=== PATIENT | female | born 1950 | race Caucasian/White ===

== ENCOUNTER 2024-11-04 09:28 | Emergency (ER) | payer OTHER, SELFPAY ==
[2024-11-04 09:37] VITALS: BMI 24.6
[2024-11-04 09:38] VITALS: BP 132/79
[2024-11-04 10:00] VITALS: BP 134/66
--- NOTE | 2024-11-04 10:00 | ED.GENMED ---
History of Present Illness
General
Chief Complaint: Chest Pain
Source: patient
Time Seen by Provider: 11/04/24 09:35
History of Present Illness
History of Present Illness:
74-year-old female presents to the emergency room complaining of chest pain. Patient has a history of coronary artery disease and acute MIs. She states she has 12 stents. Typically she sees cardiology at [facility]. Patient has been
experiencing episodes of chest pressure frequently over the past couple weeks. She takes and nitro when she has the discomfort in the discomfort seems to go away in about 10 to 15 minutes. It is associated with some discomfort in her left arm and
some shortness of breath. Intermittently the pain is associated with nausea. Today the patient was having chest discomfort that did not go away within nitro. She took a second 1 as well as 4 baby aspirin without improvement. 911 was called
paramedics gave an additional 324 mg of aspirin and 2 squirts of nitro spray. Ultimately this did help alleviate the chest discomfort and she is not having any at the time of my evaluation. Patient believes her last cardiac catheterization was in
2018. Complicating her situation is the patient's had gastric ulcers with GI bleeding. Because of this Brilinta was stopped about a year ago. She takes which she believes is Protonix twice a day. She states she has had an endoscopy which shows
Zhang's esophagitis and ulcers. No bloody stool recently. Her stools are sometimes very black but she does take vitamins which contain iron.
Past History
Past History
ED Past Medical History: CAD, [place] (20 years ago Lucie, stented x 4. Four more stents later, 2001, then another [place] 2011 with stents.) and Psychiatric (anxiety takes Lexapro)
ED Past Surgical History: Appendectomy, Bowel resection and Cardiac (stents)
Social History
Tobacco: Non-smoker
Alcohol: None
Drug: None
Personal:
Living: with family
Employment: Employed
Family History
Family History: Hypertension
Phy Exam
Physical Exam
Physical Exam:
General: Awake, Alert, Oriented X3. No acute distress.
Vitals: unremarkable
Head: Atraumatic
Eyes: Pupils equal, EOMI
Throat: Airway intact, no exudates
Neck: Trachea midline
Lungs: Clear and equal b/l
Heart: Regular rate, no murmurs
Abd: Soft, Nontender, No pulsatile mass
Rectal: Heme-negative brown stool
Neuro: Nonfocal
Skin: Warm, dry, no rash
Extremities: pulses equal b/l, no edema
Scores
Heart Score for Chest Pain Patients
STEMI patient?: No
History: Moderately Suspicious
ECG: Nonspecific Repolarization
Age: >/= 65 years
Risk Factors: >/= 3 Risk Factors or History of CAD
Troponin: </= Normal Limit
Heart Score for Chest Pain Patients: 6
Heart Score Risk: 20.3% MACE over next 6 weeks
Course
Orders/Labs/Results
Orders:
Orders
11/04/24 09:37
Electrocardiogram (*1) Urgent
Reason for Study: Chest Pain
EKG- Treatment ONCE
11/04/24 09:46
CMP [Comprehensive Metabolic Panel] Urgent
Complete Blood Count/With Diff Urgent
Lipase Urgent
Troponin I Urgent
11/04/24 09:58
CR Chest - 2 Views Urgent
Comment:
Reason For Exam: chest pain
11/04/24 10:06
Type+Screen Urgent
11/04/24 10:25
ABO2 Urgent
BBK Wristband Number:
Associate notified that ABO2 has been ordered: [id number]
Date: 11/04/24
Time: 10:17
Airborne Electronics Analyst ID: [id number]
11/04/24 12:27
Troponin I Urgent
Abnormal Lab Results
11/04/24
09:46
RBC 4.00 L 10^6/uL
(4.20-5.40)
Hct 35.5 L %
(37.0-47.0)
Lymphocytes % 17.9 L %
(20.5-51.1)
Chloride 109 H mmol/L
(98-107)
Glucose 108 H mg/dl
(70-99)
11/04/24 09:46
11/04/24 09:46
Vital Signs
Initial and Last Documented VS:
Initial Vital Signs
Temp Pulse Resp BP Pulse Ox
97.9 F 67 17 132/79 96
11/04/24 09:38 11/04/24 09:38 11/04/24 09:38 11/04/24 09:38 11/04/24 09:38
Last Documented Vital Signs
Temp Pulse Resp BP Pulse Ox
97.9 F 67 14 134/66 96
11/04/24 09:38 11/04/24 13:15 11/04/24 13:15 11/04/24 10:00 11/04/24 09:45
MDM/Problems Addressed
Differential Diagnosis Includes:
Angina, acute coronary syndrome, gastritis or esophagitis
MDM/Problems Addressed:
Patient presents with chest discomfort which occurs at rest. No exertional component. Troponin negative x 2. No acute ischemic changes. Hemoglobin is 12. She has heme negative stool. Remainder of her labs are reassuring. Patient placed on the
chest pain hotline. Patient does have a appraiser personal property at [facility] however she seems dissatisfied with them and is requesting contact information one of our appraiser personal property.
*Radiology
Radiology exam reviewed: preliminary read by ED provider (No acute abnormalities on my review of the patient's chest x-ray)
*Pulse Oximetry
Patient hypoxic: no
*EKG
Interpreted by ED Provider?: Yes
Heart Rate: 64
Rate: normal
Rhythm: sinus
Guin: normal axis
Interval: first degree heart block
QRS Pattern: normal QRS
Ischemia: no ischemia
*Secondary School Teacher Librarian Interpretation
Rate: normal
Interpretation: normal
Rhythm: sinus
*Critical Care Note
Total Time (30-74mins, 75-104mins- exclusive of procedures): Not Applicable
ED Attending Note
-
Portions of this chart may have been created with voice recognition software.� Occasional wrong word or��sound alike� substitutions may have occurred due to the inherent limitations of voice recognition software.
Discharge Plan
Departure
Patient Disposition: Home (Routine Discharge)
Date of Disposition: 11/04/24
Time of Disposition: 13:38
Patient with high blood pressure during this ER visit?: No
Condition: Good
Discharge Problem:
Chest pain
Instructions: Acid Reflux and GERD in Adults (DC)
Prescriptions:
No Action
atorvastatin [Lipitor] 80 mg Tablet
80 mg PO HS
ascorbic acid (vitamin C) [Vitamin C] 1,000 mg Tablet
1,000 mg PO DAILY
isosorbide mononitrate 30 mg Tablet Extended Release 24 Hr
30 mg PO DAILY
amlodipine 5 mg Tablet
5 mg PO DAILY
aspirin 81 mg Capsule,Delayed Release(Dr/Ec)
81 mg PO DAILY
zonisamide 100 mg Capsule
200 mg PO DAILY
metoprolol succinate [Toprol XL] 25 mg Tablet Extended Release 24 Hr
25 mg PO DAILY
calcium carbonate-vitamin D3 500 mg-3.125 mcg (125 unit) Tablet
1 tab PO DAILY
pantoprazole 40 mg Tablet,Delayed Release (Dr/Ec)
40 mg PO BID
nitroglycerin 400 mcg/spray [place],Non-Aerosol
1 spray SUBLINGUAL ONCE PRN (Reason: CP)
omega-3 fatty acids-vitamin E 1,000-5 mg-unit Capsule
1 cap PO DAILY
Referrals:
Jed Mercado MD [Active] -
Aissatou Tillman MD [Family Provider] -
Activity Restrictions/Additional Instructions:
Your labs here show no elevation of your heart enzyme. Your hemoglobin is normal. Because you have expressed interest in seeing a appraiser personal property here I have given you contact information for [place] [facility]. I have placed her information on
our chest pain hotline so you should receive a call from them to arrange follow-up. You should take a baby aspirin a day until you see the appraiser personal property.
Interventions
Interventions:
*Risk Screen - Suicide Last Done: 11/04/24 09:46
*General Assessment Last Done: 11/04/24 11:26
*Neglect/Abuse Screening Last Done: 11/04/24 09:46
ED- Fall Risk Assessment Last Done: 11/04/24 11:26
*ED COVID-19 Vaccine History Last Done: 11/04/24 09:45
*Nursing Disposition Last Done: 11/04/24 13:52
ED- Cardiac Assessment Last Done: 11/04/24 09:46
Discharge Date and Time
Discharge Date/Time: 11/04/24 14:13
Print Language: LATVIAN
[2024-11-04 10:05] LABS: % Basophils 0.7 % (0-2); % Eosinophils 2.4 % (0-6); % Immature Granulocytes 0.5 % (0-0.5); % Lymphocytes 17.9 % (20.5-51.1); % Monocytes 7.8 % (1.7-9.3); % Neutrophils 70.7 % (42.2-75.2); Absolute Basophils 0.1 10^3/uL (0-0.2); Absolute Eosinophils 0.2 10^3/uL (0-0.7); Absolute Lymphocytes 1.4 10^3/uL (1.2-3.4); Absolute Monocytes 0.6 10^3/uL (0.1-0.6); Absolute Neutrophils 5.7 10^3/uL (1.4-6.5); Hematocrit 35.5 % (37.0-47.0); Hemoglobin 12.1 g/dL (12.0-16.0); Mean Corp Hgb Conc. 34.1 g/dL (33.0-37.0); Mean Corpuscular Hgb 30.3 pg (27.0-31.0); Mean Corpuscular Volume 88.8 fL (81.0-99.0); Mean Platelet Volume 8.8 fL (7.4-10.4); Nucleated Red Blood Cells % 0 %; Platelet Count 321 10^3/uL (130-400); Red Cell Dist. Width 14.2 % (11.5-14.5)
[2024-11-04 10:14] LABS: ALT (SGPT) 13 U/L (0-35); AST (SGOT) 16 U/L (14-36); Alkaline Phosphatase 79 U/L (38-126); Blood Urea Nitrogen 12 mg/dl (7-17); Calcium 9.5 mg/dl (8.4-10.2); Carbon Dioxide 23 mmol/L (22-30); Chloride 109 mmol/L (98-107); Estimated Creatinine Clearance 58 ml/min; Glucose 108 mg/dl (70-99); Lipase 103 U/L (23-300); Potassium 3.6 mmol/L (3.5-5.1); Sodium 140 mmol/L (135-145); Total Bilirubin 0.4 mg/dl (0.2-1.3); Total Protein 6.7 g/dl (6.3-8.2); eGFR > 60.00
[2024-11-04 10:25] LABS: Troponin I < 0.012 ng/ml
[2024-11-04 13:22] LABS: Troponin I < 0.012 ng/ml
== END 2024-11-04 14:13 | disposition home or self-care (01) ==
LOC: EMR 09:28
PROVIDERS: EMERGENCY PHYSICIAN Emergency Medicine; FAMILY PHYSICIAN Family Medicine
DX: R07.89 Other chest pain (principal); I25.10 Atherosclerotic heart disease of native coronary artery without angina pectoris; I25.2 Old myocardial infarction; F41.9 Anxiety disorder, unspecified; Z79.899 Other long term (current) drug therapy; Z82.49 Family history of ischemic heart disease and other diseases of the circulatory system; Z87.19 Personal history of other diseases of the digestive system; Z90.49 Acquired absence of other specified parts of digestive tract; Z95.5 Presence of coronary angioplasty implant and graft
CPT/HCPCS: 99283; 71046; 80053; 83690; 84484; 85025; 86850; 86900; 86901; 93005

== ENCOUNTER 2024-12-31 11:53 | Emergency (ER) | payer OTHER, SELFPAY ==
[2024-12-31 12:10] VITALS: BP 174/94
[2024-12-31] MEDS: XYLOCAINE VISCOUS CUP 15 ML PO (13:13)
--- NOTE | 2024-12-31 13:42 | ED.GENMED ---
History of Present Illness
General
Chief Complaint: Dental Problem
Time Seen by Provider: 12/31/24 12:37
History of Present Illness
History of Present Illness:
74-year-old female presents the emergency department for evaluation of pain and swelling to the right jaw due to known dental caries. She was planning to see her dentist for definitive tooth extraction however he was unwilling to treat her while
she remained on Plavix, she stopped this 3 days ago. Denies any fevers or neck pain
Past History
Past History
ED Past Medical History: CAD, [place] (20 years ago Lucie, stented x 4. Four more stents later, 2001, then another [place] 2011 with stents.) and Psychiatric (anxiety takes Lexapro)
ED Past Surgical History: Appendectomy, Bowel resection and Cardiac (stents)
Social History
Tobacco: Non-smoker
Alcohol: None
Drug: None
Personal:
Living: with family
Employment: Employed
Family History
Family History: Hypertension
Review of Systems
Review of Systems
Allergies reviewed?: Yes
All Other Systems: ROS reviewed and negative except as documented in HPI and ROS
Phy Exam
Physical Exam
Physical Exam:
GEN: Well appearing, NAD, WDWN
HEENT: Oral mucosa moist, no scleral icterus. Numerous dental caries and absent teeth. Significant gingival erythema and fluctuance to the right lower jaw with associated facial swelling and adenopathy
Cardiac: Regular rate
Lung: No respiratory distress, no tachypnea
MSK: No gross deformity or injuries
Skin: Good color, no pallor or jaundice, no rashes
Neuro: AO x3, moves all extremities freely
Psych: Calm, cooperative
Course
Orders/Labs/Results
Orders:
Orders
12/31/24 12:57
Viscous Lidocaine 2% [Xylocaine Viscous Cup] 15 ml PO NOW STA
12/31/24 13:28
Clindamycin HCl [Cleocin] 450 mg PO NOW STA
Oxycodone [Roxicodone] 5 mg PO NOW STA
Vital Signs
Initial and Last Documented VS:
Initial Vital Signs
Temp Pulse Resp BP Pulse Ox
98.4 F 95 18 174/94 98
12/31/24 12:10 12/31/24 12:10 12/31/24 12:10 12/31/24 12:10 12/31/24 12:10
Last Documented Vital Signs
Temp Pulse Resp BP Pulse Ox
98.4 F 95 18 174/94 98
12/31/24 12:10 12/31/24 12:10 12/31/24 12:10 12/31/24 12:10 12/31/24 12:10
MDM/Problems Addressed
MDM/Problems Addressed:
I attempted dental block anesthesia an 18-gauge aspiration of the abscess with minimal improvement in symptoms. Will start the patient on clindamycin and pain medication, outpatient dental follow-up advised. No indication for imaging
*Critical Care Note
Total Time (30-74mins, 75-104mins- exclusive of procedures): Not Applicable
ED Attending Note
-
Portions of this chart may have been created with voice recognition software.� Occasional wrong word or��sound alike� substitutions may have occurred due to the inherent limitations of voice recognition software.
Discharge Plan
Departure
Patient Disposition: Home (Routine Discharge)
Date of Disposition: 12/31/24
Time of Disposition: 13:42
Patient with high blood pressure during this ER visit?: No
Discharge Problem:
Abscess, dental
Instructions: Tooth Abscess (DC)
Prescriptions:
New
clindamycin HCl 300 mg capsule
300 mg PO Q6H 7 Days Qty: 28 0RF
oxycodone 5 mg tablet
5 mg PO Q8H PRN (Reason: Pain) Qty: 8 0RF
No Action
atorvastatin [Lipitor] 80 mg Tablet
80 mg PO HS
ascorbic acid (vitamin C) [Vitamin C] 1,000 mg Tablet
1,000 mg PO DAILY
isosorbide mononitrate 30 mg Tablet Extended Release 24 Hr
30 mg PO DAILY
amlodipine 5 mg Tablet
5 mg PO DAILY
aspirin 81 mg Capsule,Delayed Release(Dr/Ec)
81 mg PO DAILY
zonisamide 100 mg Capsule
200 mg PO DAILY
metoprolol succinate [Toprol XL] 25 mg Tablet Extended Release 24 Hr
25 mg PO DAILY
calcium carbonate-vitamin D3 500 mg-3.125 mcg (125 unit) Tablet
1 tab PO DAILY
pantoprazole 40 mg Tablet,Delayed Release (Dr/Ec)
40 mg PO BID
nitroglycerin 400 mcg/spray [place],Non-Aerosol
1 spray SUBLINGUAL ONCE PRN (Reason: CP)
omega-3 fatty acids-vitamin E 1,000-5 mg-unit Capsule
1 cap PO DAILY
Referrals:
Aissatou Tillman MD [Family Provider] -
Interventions
Interventions:
*Risk Screen - Suicide Last Done: 12/31/24 13:00
*General Assessment Last Done: 12/31/24 12:14
*Neglect/Abuse Screening Last Done: 12/31/24 13:00
*Nursing Disposition Last Done: 12/31/24 14:47
Discharge Date and Time
Discharge Date/Time: 12/31/24 14:47
Print Language: [id number]
[2024-12-31] MEDS: ROXICODONE 5 MG PO (13:51)
[2024-12-31] MEDS: CLEOCIN 450 MG PO (13:51)
== END 2024-12-31 14:47 | disposition home or self-care (01) ==
LOC: EMR 11:53
PROVIDERS: EMERGENCY PHYSICIAN Emergency Medicine; FAMILY PHYSICIAN Family Medicine
DX: K04.7 Periapical abscess without sinus (principal); I25.10 Atherosclerotic heart disease of native coronary artery without angina pectoris; I25.2 Old myocardial infarction; F41.9 Anxiety disorder, unspecified; Z82.49 Family history of ischemic heart disease and other diseases of the circulatory system; Z90.49 Acquired absence of other specified parts of digestive tract; Z95.5 Presence of coronary angioplasty implant and graft
CPT/HCPCS: 99282; 64400

== ENCOUNTER → 2025-01-04 11:23 | Outpatient (REF) | payer OTHER, SELFPAY | LOC: RCS 11:23 | PROVIDERS: ATTENDING PHYSICIAN Internal Medicine Cardiovascular Disease | DX: I25.10 Atherosclerotic heart disease of native coronary artery without angina pectoris (principal); R07.89 Other chest pain; Z95.5 Presence of coronary angioplasty implant and graft | CPT/HCPCS: 93306 ==